=== PATIENT | male | born 1990 | race Caucasian/White ===

== ENCOUNTER 2024-02-16 05:49 | Emergency (ER) | payer OTHER, SELFPAY ==
[2024-02-16 05:58] VITALS: BP 173/105; PULSE 73; RESP 18; TEMP 36.5; O2SAT 100; BMI 33.2
--- NOTE | 2024-02-16 06:04 | ED.EXTPRO ---
HPI - Extremity Problem General Chief complaint: Extremity Problem,Nontraumatic Stated complaint: left wrist and elbow pain Time Seen by Provider: 02/16/24 05:53 Source: patient Mode of arrival: Ambulatory History of Present Illness HPI Narrative: Patient is a 33-year-old male who is here for evaluation of left elbow discomfort but also more specifically left wrist discomfort and tingling to his little finger and ring finger in his left hand. No specific injury. He has been using a wrist brace at home but he thinks that the compression of it is potentially making things somewhat worse. He thinks he did sleep on his arm wrong. He has had symptoms similar in the past but not this bad. Related Data Home Medications Medication Instructions Recorded Confirmed methylphenidate HCl 10 mg tablet 10 mg PO BID 02/16/24 02/16/24 methylphenidate HCl 36 mg 36 mg PO QAM 02/16/24 02/16/24 tablet,extended release 24 hr Allergies Allergy/AdvReac Type Severity Reaction Status Date / Time No Known Drug Allergies Allergy Verified 02/16/24 06:04 Review of Systems Constitutional Constitutional: Reports system reviewed and no additional complaints, except as documented Musculoskeletal Musculoskeletal: Reports system reviewed and no additional complaints, except as documented Integumentary/Breasts Skin/Breast: Reports system reviewed and no additional complaints, except as documented Neurologic Neurologic: Reports system reviewed and no additional complaints, except as documented Exam Initial Vital Signs Initial Vital Signs: Vital Signs Temperature 97.7 F 02/16/24 05:58 Pulse Rate 73 02/16/24 05:58 Respiratory Rate 18 02/16/24 05:58 Blood Pressure 173/105 H 02/16/24 05:58 Pulse Oximetry 100 02/16/24 05:58 Oxygen Delivery Method Room Air 02/16/24 05:58 Cardio Pulses: radial pulses present on the left Skin General: no rashes or lesions noted Neuro Other: Tingling sensation to the ulnar nerve of the left hand. No tenderness with palpation of the ulnar nerve around the left elbow. Extrem Other: No gross deformities. Course Vital Signs Vital signs: Vital Signs - 8 hr 02/16/24 05:58 Temperature 97.7 F Pulse Rate 73 Respiratory Rate 18 Blood Pressure 173/105 H Pulse Oximetry 100 Oxygen Delivery Method Room Air MDM - Extremity (Nontraumatic) MDM Narrative Medical decision making narrative: Patient has discomfort of the ulnar nerve distribution of the left elbow in the left wrist. No specific injury. Low suspicion for fracture. No indication for x-rays. He has had similar symptoms in the past. He feels like the wrist brace is not helpful because it is too tight. We could potentially use an Kit bandage but the patient declined. No further workup required in the emergency department. I suspect that his symptoms will improve. Discussed the use of Tylenol and ibuprofen and also resting his arm and also using ice. If his symptoms do not improve he may need follow up with his primary doctor to discuss follow-up with orthopedic surgery physical therapy. Discharge Plan Departure Patient Disposition: Home Clinical Impression: Ulnar nerve impingement Instructions: How To Perform RICE (Rest, Ice, Compress, Elevate) Activity Restrictions/Additional Instructions: You can use the wrist brace as needed for your comfort. I also recommend that you use anti-inflammatories such as ibuprofen. You can also ice your wrist and your elbow. Try to avoid overusing your wrist and elbow as much as possible. Contact your primary care doctor for a follow-up. Prescriptions: No Action methylphenidate HCl 10 mg tablet 10 mg PO BID methylphenidate HCl 36 mg tablet extended release 24hr 36 mg PO QAM Stand Alone Forms: Patient Portal/API
== END 2024-02-16 06:11 | disposition home or self-care (01) ==
PROVIDERS: Emergency Provider Emergency Medicine
DX: G56.22 Lesion of ulnar nerve, left upper limb (principal)
CPT/HCPCS: 99281